=== PATIENT | male | born 1970 | race Two or more races ===

== ENCOUNTER 2017-01-03 10:06 | Emergency (ER) | payer OTHER ==
[~2017-01-03 10:06] MED LIST: Zolpidem TAB* 10 MG PO SCH
[2017-01-03 10:22] VITALS: BP 116/74
[2017-01-03] MEDS ORDERED: Zolpidem TAB* 10 MG PO PRN (10:41)
--- NOTE | 2017-01-03 11:13 | ED ---
Headache - HPI Summary HPI Summary: Patient presents to the ED with request for medication refill. He has a rx for sonata and is here visiting for the weekend. He notes to worsening insomnia when he travels. He states he has been having insomnia for a few days without his medication. Istop shows he has a prescription. He notes to worsening EASTON symptoms with insomnia. He denies any other complaints. Denies chest pain, SOB , E[place] worst of life, urinary symptoms or other complaints. He is otherwise healthy and takes no other medications. - History Of Current Complaint Chief Complaint: EDPrescriptionNeeded Stated Complaint: RX REFILL Time Seen by Provider: 01/03/17 10:30 Hx Obtained From: Patient Onset/Duration: Sudden Onset Timing: Constant - Risk Factors SAH Risk Factors: Negative Meningitis Risk Factors: Negative SDH Risk Factors: Negative Temporal Arteritis Risk Factors: Negative - Allergies/Home Medications Allergies/Adverse Reactions: Allergies Allergy/AdvReac Type Severity Reaction Status Date / Time No Known Allergies Allergy Verified 01/03/17 10:22 PMH/Surg Hx/FS Hx/Imm Hx Previously Healthy: Yes Infectious Disease History: No Infectious Disease History: Denies: Traveled Outside the [place] in Last 30 Days - Social History Occupation: Employed Full-time Lives: With Family Alcohol Use: Weekly Hx Substance Use: No Substance Use Type: Reports: None Hx Tobacco Use: No Smoking Status (MU): Never Smoked Tobacco Review of Systems Negative: Fever, Chills, Fatigue Eyes: Negative ENT: Negative Respiratory: Negative Gastrointestinal: Negative Negative: no symptoms reported, see HPI Musculoskeletal: Negative Skin: Negative Psychological: Normal All Other Systems Reviewed And Are Negative: Yes Physical Exam Triage Information Reviewed: Yes Vital Signs On Initial Exam: Initial Vitals Temp Pulse Resp BP Pulse Ox 97.4 F 71 14 116/74 98 01/03/17 10:16 01/03/17 10:16 01/03/17 10:16 01/03/17 10:16 01/03/17 10:16 Vital Signs Reviewed: Yes Appearance: Positive: Well-Appearing, Well-Nourished Skin: Positive: Warm, Skin Color Reflects Adequate Perfusion Head/Face: Positive: Normal Head/Face Inspection Eyes: Positive: EOMI, TESSA Neck: Positive: Supple, No Lymphadenopathy Respiratory/Lung Sounds: Positive: Clear to Auscultation, Breath Sounds Present Cardiovascular: Positive: Normal, RRR, Pulses are Symmetrical in both Upper and Lower Extremities Musculoskeletal: Positive: Normal, Strength/ROM Intact Neurological: Positive: Sensory/Motor Intact, Alert, Oriented to Person Place, Time, Speech Normal Psychiatric: Positive: Normal AVPU Assessment: Alert Diagnostics - Vital Signs Vital Signs Temp Pulse Resp BP Pulse Ox 01/03/17 10:16 97.4 F 71 14 116/74 98 - Laboratory Lab Statement: Any lab studies that have been ordered have been reviewed, and results considered in the medical decision making process. Headache Course/Dx - Course Course Of Treatment: Patient presents with request for a medication refill. Istop reveals he has rx. He is given 3 - 10mg doses of sonata in the ED. He is instructed to take only 1 tab maximum (10mg) dosage as needed for insomnia. He agrees with plan. - Diagnoses Differential Diagnosis/HQI/PQRI: Other - medication refill, insomnia, EASTON Provider Diagnoses: Medication refill Discharge - Discharge Plan Condition: Stable Disposition: HOME Patient Education Materials: Zolpidem (By mouth), Insomnia (ED) Referrals: No Primary Care Phys,NOPCP [Medical Doctor] - Additional Instructions: Follow up as needed with your PCP Take only as directed, not to exceed 10mg per day Take at bedtime
== END 2017-01-03 11:31 | disposition home or self-care (01) ==
LOC: ED 10:06
DX: Z76.0 Encounter for issue of repeat prescription (principal); G47.00 Insomnia, unspecified
CPT/HCPCS: 99281; A9270-GY